=== PATIENT | male | born 1960 | race Caucasian/White ===

== ENCOUNTER 2017-11-01 03:46 | Emergency (ER) | payer OTHER ==
[~2017-11-01] VITALS: Ht 180.3 cm; Wt 73.6 kg
[2017-11-01] MEDS ORDERED: ERYTHROMYC1 APPLICAT LEFT EYE (05:19)
[2017-11-01] MEDS ORDERED: PERCOCET 5/31 TABLET PO (05:19)
[2017-11-01 05:56] VITALS: BP 190/88
== END 2017-11-01 05:57 | disposition home or self-care (01) ==
LOC: EME 03:46
DX: S05.02XA Injury of conjunctiva and corneal abrasion without foreign body, left eye, initial encounter (principal); W22.8XXA Striking against or struck by other objects, initial encounter; F17.200 Nicotine dependence, unspecified, uncomplicated
CPT/HCPCS: 99281; 99284